=== PATIENT | female | born 1990 | race Caucasian/White ===

== ENCOUNTER 2016-11-16 09:21 | Emergency (ER) | payer OTHER ==
[~2016-11-16] VITALS: Ht 160 cm; Wt 43.7 kg
[~2016-11-16 09:21] MED LIST: ACET50TA PO; ANUS2.5C2 TOP; CIPR500T19 OR; DOCU10CA PO; IBUP60TA PO; NUPE1OIN2 TOP; PAIN325T; PRENTAB7 PO; VICO5TAB; ibuprofen; reglan OR; zithromax OR
[2016-11-16] MEDS ORDERED: FLAG500T PO (09:34)
[2016-11-16] MEDS ORDERED: BIOT50004 PO (09:34)
[2016-11-16] MEDS ORDERED: PRED20TA PO (10:11)
[2016-11-16] MEDS ORDERED: TRIA1CR TOP (10:12)
[2016-11-16] MEDS ORDERED: FAMOTIDINE 20 MG TAB PO ONE (10:15)
[2016-11-16] MEDS ORDERED: methylPREDNISolone INJ 125 MG/2 ML VIAL (J2930) IM ONE (10:15)
[2016-11-16 10:54] VITALS: BP 103/67
== END 2016-11-16 10:56 | disposition home or self-care (01) ==
LOC: M ED 09:21
DX: T78.40XA Allergy, unspecified, initial encounter (principal); L29.9 Pruritus, unspecified; X58.XXXA Exposure to other specified factors, initial encounter; Y92.9 Unspecified place or not applicable; Y93.9 Activity, unspecified; Y99.8 Other external cause status; L65.9 Nonscarring hair loss, unspecified; F41.9 Anxiety disorder, unspecified; F32.9 Major depressive disorder, single episode, unspecified; Z79.899 Other long term (current) drug therapy; Z88.0 Allergy status to penicillin
CPT/HCPCS: 96372; 99282; J2930

== ENCOUNTER → 2016-12-28 | Outpatient (REF) | payer OTHER ==
[~2016-12-28] MED LIST changes: +BIOT50004 PO; +FLAG500T PO; +PRED20TA PO; +TRIA1CR TOP
== END ==
LOC: M LAB REF 15:37
PROVIDERS: ATTEND Physician Assistant
DX: N39.0 Urinary tract infection, site not specified (principal)

== ENCOUNTER → 2017-06-02 | Outpatient (REF) | payer OTHER | LOC: M LAB REF 09:43 | DX: J06.9 Acute upper respiratory infection, unspecified (principal) | CPT/HCPCS: 87070 ==

== ENCOUNTER 2017-06-13 11:03 | Emergency (ER) | payer MEDICAID, OTHER ==
[2017-06-13] MEDS: KETOROLAC 30 MG/ML VIAL (J1885) IM (13:30)
[2017-06-13] MEDS: diazePAM 5 MG TAB PO (13:30)
[2017-06-13] MEDS: KETOROLAC TROMETHAMINE 10 MG TAB PO (14:30)
== END 2017-06-13 15:30 | disposition home or self-care (01) ==
LOC: M ED 11:03
DX: M47.812 Spondylosis without myelopathy or radiculopathy, cervical region (principal); M50.321 Other cervical disc degeneration at C4-C5 level; M50.322 Other cervical disc degeneration at C5-C6 level; M50.323 Other cervical disc degeneration at C6-C7 level; F32.9 Major depressive disorder, single episode, unspecified; Z88.0 Allergy status to penicillin; Z79.899 Other long term (current) drug therapy
CPT/HCPCS: 72141

== ENCOUNTER 2018-03-27 16:32 | Emergency (ER) | payer MEDICAID, OTHER ==
[~2018-03-27] VITALS: Ht 160 cm; Wt 43.2 kg
[~2018-03-27 16:32] MED LIST changes: -ACET50TA PO; +KETO10TAB PO; +MAPA500T17 PO; +MULT1TAB18 PO; +VALI5TAB PO; +VITA500C10 PO
[2018-03-27] MEDS ORDERED: FLAG500T PO (18:56)
[2018-03-27 18:58] LABS: HCG, SERUM QUALITATIVE NEGATIVE (NEGATIVE)
[2018-03-27 19:12] VITALS: BP 102/56
[2018-03-27 19:54] LABS: CHLAMYDIA DNA AMPLIFICATION NEGATIVE (NEGATIVE); GC DNA AMPLIFICATION NEGATIVE (NEGATIVE)
[2018-03-28 10:41] LABS: HEPATITIS B SURFACE ANTIBODY POSITIVE (POSITIVE); HEPATITIS B SURFACE ANTIGEN NEGATIVE (NEGATIVE); HEPATITIS C VIRUS ABY INDEX 0.1 INDEX (<0.8); HIV 1&2 SCREEN CENTAUR NEGATIVE (NEGATIVE)
== END 2018-03-27 19:14 | disposition home or self-care (01) ==
LOC: M ED 16:32
DX: N76.0 Acute vaginitis (principal); Z88.0 Allergy status to penicillin

== ENCOUNTER 2018-04-02 19:43 | Emergency (ER) | payer OTHER ==
[~2018-04-02] VITALS: Ht 160 cm; Wt 43.2 kg
[~2018-04-02 19:43] MED LIST changes: -MAPA500T17 PO; +MAPA500T2 PO
[2018-04-02 19:44] VITALS: BP 118/61
[2018-04-02] MEDS ORDERED: PROC1CRE5 PR (20:42)
[2018-04-02] MEDS ORDERED: LIDO2JELLY TOP (20:42)
[2018-04-02] MEDS ORDERED: COLA100C5 PO (20:44)
[2018-04-02] MEDS ORDERED: ANUSOL HC CREAM 30GM TOP ONE (21:00)
[2018-04-02] MEDS ORDERED: LIDOCAINE 2% JELLY 30 ML TOP ONE (21:00)
== END 2018-04-02 21:05 | disposition home or self-care (01) ==
LOC: M ED 19:43
DX: K64.4 Residual hemorrhoidal skin tags (principal); F41.9 Anxiety disorder, unspecified; F32.9 Major depressive disorder, single episode, unspecified; Z88.0 Allergy status to penicillin

== ENCOUNTER 2020-05-18 08:17 | Emergency (ER) | payer OTHER ==
[~2020-05-18] VITALS: Ht 160 cm; Wt 42.9 kg
[~2020-05-18 08:17] MED LIST changes: +COLA100C5 PO; +IBUP600T42 PO; -IBUP60TA PO; +LIDO2JELLY TOP; +PROC1CRE5 PR; +TRIA0.1C60 TOP; -TRIA1CR TOP
[2020-05-18 08:18] VITALS: BP 110/70
--- OUTSIDE RECORDS SUMMARY | 2020-05-18 08:23 | CCD | Continuity of Care Document ---
Author Author Юлия Saenz Organization Unknown Address [address] [facility] [address] [place] [address] Phone [phone] Care Team Providers Care Hyster Machine Operator Name Role Phone Reta Rock AUTM [phone] Problems Active Problems Provider Date Abdominal pain Mary Lawrence DO Onset: 09/14/2011 Weight decreased Mary Lawrence DO Onset: 09/14/2011 Lymphadenopathy Mary Lawrence DO Onset: 09/14/2011 Social History Type Date Description Comments Sex Unknown ETOH Use Rarely consumes alcohol Tobacco Use Start: Unknown End: Unknown Patient is a former smoker 2017 - but is vaping. She continues to use e-cigarettes. Discussed the information lately in the news that vaping could be harmful to her lungs. Tattoo/Piercing Tattoo Tattoo/Piercing Pierced ears Allergies, Adverse Reactions, Alerts Active Allergies Reaction Severity Comments Date Amoxicillin rash 07/25/2010 Medications Active Medications SIG Qnty Indications Ordering Provide r Date Preparation H 1% Cream apply cream to hemorrhoid twice daily. 52gm DOMENIC Saenz 021 Lanacane Maximum Strength 20-0.2% Cream apply to hemorrhoid bid DOMENIC Saenz 021 Multivitamin Adult Tablets 1 by mouth every day DOMENIC Saenz 10/29/2018 Immunizations CPT Code Status Date Vaccine Lot # [id number] Given 01/07/2012 Fluvirin Virus Vaccine [id number] Vital Signs Date Vital Result Comment 04/22/2020 3:49pm Heart Rate 60 /min Height 63 inches 5'3" Weight 99.00 lb O2 % BldC Oximetry 93 % RM Air BMI (Body Mass Index) 17.5 kg/m2 01/27/2020 3:09pm BP Systolic 92 mmHg BP Diastolic 62 mmHg Heart Rate 61 /min Height 63 inches 5'3" Weight 91.00 lb O2 % BldC Oximetry 99 % RM Air BMI (Body Mass Index) 16.1 kg/m2 Results Test Acquired Date Facility Test Result H/L Range Note Complete Blood Count 01/27/2020 [facility] rimma sanchez Manager Private: [address] [place] [address] [phone] WBC 4.5 x10*3/UL 4.1 - 10.9 RBC 4.62 x10*6/UL 4.20 - 6.30 Hemoglobin 14.0 g/dL 12.0 - 18.0 Hematocrit 39.9 % 37.0 - 51.0 MCV 86.2 fL 80.0 - 97.0 MCH 30.4 pg 26.0 - 32.0 MCHC 35.2 g/dL 31.0 - 38.0 RDW 12.5 % 11.6 - 13.7 PLT 246 x10*3/UL 140 - 440 MPV 8.3 FL 7.8 - 11.0 Lymph % 32.2 % 10.0 - 58.5 Mid % 6.2 % 1.7 - 9.3 Neut % 61.6 % 37.0 - 92.0 Lymph # 1.4 x10*3/UL 0.6 - 4.1 Mid # 0.3 x10*3/UL 0.1 - 0.6 Neut # 2.8 x10*3/UL 2.0 - 7.8 Comprehensive Chem Profile 01/27/2020 [facility] rimma Kyle Manager Private: Dr Cisco [address] [place] [address] [phone] Glucose 102 mg/dL High 74 - 99 1 BUN 20 mg/dL High 7 - 18 Creatinine 1.0 mg/dL 0.6 - 1.3 Sodium 142 mEq/L 136 - 145 Potassium 3.5 mEq/L 3.5 - 5.1 Chloride 103 mEq/L 98 - 107 Carbon Dioxide 28 mEq/L 21 - 32 Calcium 9.1 mg/dL 8.5 - 10.1 Alk. Phosphatase 53 mg/dL 46 - 116 Total Bilirubin 0.7 mg/dL 0.2 - 1.0 Ast (Sgot) 12 U/L Low 15 - 37 Alt (SGPT) 14 U/L 12 - 78 Albumin 4.2 g/dL 3.4 - 5.0 Total Protein 7.6 g/dL 6.4 - 8.2 A/G Ratio 1.24 CALC 1.00 - 1.90 GFR >= 60 mL/min >60 GFR >= 60 mL/min >60 2 A1c 01/27/2020 [facility] Manager Private: [address] [place] [address] [phone] Hba1c 5.2 % <5.7 3 Est Avg Glucose 103 mg/dL 60 - 110 Laboratory test finding 01/27/2020 [facility] [employer] rimma mayer Manager Private: Dr [address] [place], [place] [id number] [phone] Thyroid Stimulating Hormone 2.25 uIU/mL 0.3 6 - 3.74 1 100-125 mg/dL PRE-DIABET ES/FASTING >126 mg/dL DIABETES/FASTING 2 CHRONIC KIDNEY DISEASE STAGI NG PER NKF STAGE I & II GFR >= 60 NORMAL TO MILDLY DECREASED STAGE III GFR 30-59 MODERATELY DECREASED STAGE IV GFR 15-29 SEVERELY DECREASED STAGE V GFR <15 VERY LITTLE GFR LEFT ESRD GFR <15 ON EXPERIENCE DESIGNER 3 Lab Result Notes: Pre-Diabetes 5.7 - 6.4 % Diabetes = or > 6.5% Procedures Date Code Description Status 12/09/2015 [id number] Colonoscopy Completed Medical Devices Description No Information Available Encounters Type Date Location Provider Dx Diagnosis Office Visit 01/27/2020 3:00p [facility] [place]eta [place], [facility] Z00.01 Encounter for general adult medical exam w abnormal findings R63.6 Underweight Z68.1 Body mass index [BMI] 19.9 o r less, adult R73.09 Other abnormal glucose F41.9 Anxiety disorder, unspecifie d R10.32 Left lower quadrant pain Assessments Date Code Description Provider 01/27/2020 Z00.01 Encounter for genera l adult medical examination with abnormal findings DOMENIC Saenz 01/27/2020 R63.6 Underweight DOMENIC Saenz 01/27/2020 Z68.1 Body mass index [BMI] 19.9 or le ss, adult DOMENIC Saenz 01/27/2020 R73.09 Other abnormal glucose Reta Dodge, TELEPRINTER 01/27/2020 F41.9 Anxiety disorder, unspecified An n Yesenia Alexander, DOMENIC 01/27/2020 R10.32 Left lower quadrant pain DOMENIC Saenz Plan of Treatment Future Appointment(s):* 02/01/2021 3:00 pm - DOMENIC Saenz at [facility] * 07/26/2020 3:20 pm - DOMENIC Saenz at [facility] 04/22/2020 - DOMENCI Saenz* All * New Medication:* Preparation H 1 % - apply cream to hemorrhoid twice daily. * Lanacane Maximum Strength 20-0.2 % - apply to hemorrhoid bid Functional Status Description No Information Available Mental Status Description No Information Available Referrals Refer to Dr Reason for Referral Status Appt Date [facility] ENGINEER CONSULT FOR BLURRED VISION RT EYE Sent [facility] [address] [place] [address] [phone]
--- OUTSIDE RECORDS SUMMARY | 2020-05-18 08:23 | CCD | Continuity of Care Document ---
Author Author Юлия PECK MD Organization Unknown Address [address] [facility] [address] [place] [address] Phone [phone] Care Team Providers Care Beef Cattle Specialist Name Role Phone Reta RockM [phone] Problems Description No Active Problems Social History Type Date Description Comments Sex Unknown ETOH Use Rarely consumes alcohol Recreational Drug Use Denies Drug Use Tobacco Use Start: Unknown Denies Smoking Allergies, Adverse Reactions, Alerts Active Allergies Reaction Severity Comments Date Amoxicillin 09/07/2015 Medications Active Medications SIG Qnty Indications Ordering Provide r Date Multivitamin Adult Tablets 1 by mouth every day Unknown Immunizations Description No Information Available Vital Signs Date Vital Result Comment 05/04/2020 4:05pm BP Systolic 104 mmHg BP Diastolic 69 mmHg Heart Rate 61 /min Height 63 inches 5'3" Weight 94.50 lb BMI (Body Mass Index) 16.7 kg/m2 [place] Body Weight 115 lb Weight 42.865 kg BSA (Body Surface Area) 1.41 m2 04/04/2018 10:10am BP Systolic 104 mmHg Ra BP Diastolic 70 mmHg Ra Height 63 inches 5'3" Weight 98.00 lb BMI (Body Mass Index) 17.4 kg/m2 [place] Body Weight 115 lb Weight 44.453 kg BSA (Body Surface Area) 1.43 m2 Results Description No Information Available Procedures Description No Information Available Medical Devices Description No Information Available Encounters Description No Information Available Assessments Description No Information Available Plan of Treatment 04/04/2018 - Tamir Peck JR, MD* K64.5 Perianal venous thrombosis* Comments: * Patient has an obvious thrombosed external hemorrhoid which is symptomatic at this time and causes pain and discomfort. We have discussed options for her including nonoperative versus operative treatment with incision and drainage of this and the risks as well as benefits associated with nonoperative versus operative treatment and the patient would like to proceed with incision and drainage of thrombosed external hemorrhoid.Preoperative diagnosis-thrombosed external hemorrhoidPostoperative diagnosis-sameProcedure- incision and drainage of thrombosed external hemorrhoidProcedure summaryPatient was prepped and draped in usual sterile fashion Betadine was used to clean the area and then local lidocaine with epinephrine was infiltrated around the thrombosed external hemorrhoid after adequate local anesthesia was established and the patient was comfortable additional injections within the hemorrhoid itself was performed and then a cruciate type of incision was made over the top of the thrombosed external hemorrhoid the clot was evacuated with a curved hemostat as well as some gentle pressure. After adequate evacuation the area was covered with a dry sterile gauze after good hemostasis was achieved with some minimal local pressure.Postoperative care was discussed with the patient at length including sitz baths and the expectation that this will continue to drain for a few days however if this has ongoing bleeding or drainage or pain that is persistent to contact our office and we will reevaluate her at that time. Pain control with typical analgesics is warranted such as Tylenol or nonsteroidals. Functional Status Description No Information Available Mental Status Description No Information Available Referrals Refer to Reason for Referral Status Appt Date Tamir Peck JR, MD HEMORRHOIDS Scheduled [address] [place] [address] [phone]
--- OUTSIDE RECORDS SUMMARY | 2020-05-18 08:24 | CCD ---
Author Author [facility] Organization [facility] Address Unknown Phone Unavailable Care Team Providers Care Machine Edge Bander Name Role Phone LePine, M Reta GEOSPATIAL PROGRAM MANAGEMENT OFFICER Unavailable Unavailable LePine, M Reta GEOSPATIAL PROGRAM MANAGEMENT OFFICER Unavailable Unavailable LePine, M Reta GEOSPATIAL PROGRAM MANAGEMENT OFFICER Unavailable Unavailable LePine, M Reat GEOSPATIAL PROGRAM MANAGEMENT OFFICER Unavailable Unavailable LePine, M Reta GEOSPATIAL PROGRAM MANAGEMENT OFFICER Unavailable Unavailable LePine, M Reta GEOSPATIAL PROGRAM MANAGEMENT OFFICER Unavailable Unavailable LePine, M Reta GEOSPATIAL PROGRAM MANAGEMENT OFFICER Unavailable Unavailable LePine, M Reta GEOSPATIAL PROGRAM MANAGEMENT OFFICER Unavailable Unavailable LePine, M Reta GEOSPATIAL PROGRAM MANAGEMENT OFFICER Unavailable Unavailable LePine, M Reta GEOSPATIAL PROGRAM MANAGEMENT OFFICER Unavailable Unavailable LePine, M Reta GEOSPATIAL PROGRAM MANAGEMENT OFFICER Unavailable Unavailable LePine, M Reta GEOSPATIAL PROGRAM MANAGEMENT OFFICER Unavailable Unavailable LePine, M Reta GEOSPATIAL PROGRAM MANAGEMENT OFFICER Unavailable Unavailable LePine, M Reta GEOSPATIAL PROGRAM MANAGEMENT OFFICER Unavailable Unavailable LePine, M Reta GEOSPATIAL PROGRAM MANAGEMENT OFFICER Unavailable Unavailable LePine, M Reta GEOSPATIAL PROGRAM MANAGEMENT OFFICER Unavailable Unavailable LePine, M Reta GEOSPATIAL PROGRAM MANAGEMENT OFFICER Unavailable Unavailable LePine, M Reta GEOSPATIAL PROGRAM MANAGEMENT OFFICER Unavailable Unavailable LePine, M Reta GEOSPATIAL PROGRAM MANAGEMENT OFFICER Unavailable Unavailable LePine, M Reta GEOSPATIAL PROGRAM MANAGEMENT OFFICER Unavailable Unavailable LePine, M Reta GEOSPATIAL PROGRAM MANAGEMENT OFFICER Unavailable Unavailable LePine, M Reta GEOSPATIAL PROGRAM MANAGEMENT OFFICER Unavailable Unavailable LePine, M Reta GEOSPATIAL PROGRAM MANAGEMENT OFFICER Unavailable Unavailable LePine, M Reta GEOSPATIAL PROGRAM MANAGEMENT OFFICER Unavailable Unavailable LePine, M Reta GEOSPATIAL PROGRAM MANAGEMENT OFFICER Unavailable Unavailable LePine, M Reta GEOSPATIAL PROGRAM MANAGEMENT OFFICER Unavailable Unavailable LePine, M Reta GEOSPATIAL PROGRAM MANAGEMENT OFFICER Unavailable Unavailable LePine, M Reta GEOSPATIAL PROGRAM MANAGEMENT OFFICER Unavailable Unavailable LePine, M Reta GEOSPATIAL PROGRAM MANAGEMENT OFFICER Unavailable Unavailable LePine, M Reta GEOSPATIAL PROGRAM MANAGEMENT OFFICER Unavailable Unavailable LePine, M Reta GEOSPATIAL PROGRAM MANAGEMENT OFFICER Unavailable Unavailable LePine, M Reta GEOSPATIAL PROGRAM MANAGEMENT OFFICER Unavailable Unavailable LePine, M Reta GEOSPATIAL PROGRAM MANAGEMENT OFFICER Unavailable Unavailable LePine, M Reta GEOSPATIAL PROGRAM MANAGEMENT OFFICER Unavailable Unavailable LePine, M Reta GEOSPATIAL PROGRAM MANAGEMENT OFFICER Unavailable Unavailable LePine, M Reta GEOSPATIAL PROGRAM MANAGEMENT OFFICER Unavailable Unavailable LePine, M Reta GEOSPATIAL PROGRAM MANAGEMENT OFFICER Unavailable Unavailable LePine, M Reta GEOSPATIAL PROGRAM MANAGEMENT OFFICER Unavailable Unavailable LePine, M Reta GEOSPATIAL PROGRAM MANAGEMENT OFFICER Unavailable Unavailable LePine, M Reta GEOSPATIAL PROGRAM MANAGEMENT OFFICER Unavailable Unavailable LePine, M Reta GEOSPATIAL PROGRAM MANAGEMENT OFFICER Unavailable Unavailable LePine, M Reta GEOSPATIAL PROGRAM MANAGEMENT OFFICER Unavailable Unavailable LePine, M Reta GEOSPATIAL PROGRAM MANAGEMENT OFFICER Unavailable Unavailable LePine, M Reta GEOSPATIAL PROGRAM MANAGEMENT OFFICER Unavailable Unavailable LePine, M Reta GEOSPATIAL PROGRAM MANAGEMENT OFFICER Unavailable Unavailable LePine, M Reta GEOSPATIAL PROGRAM MANAGEMENT OFFICER Unavailable Unavailable LePine, M Reta GEOSPATIAL PROGRAM MANAGEMENT OFFICER Unavailable Unavailable LePine, M Reta GEOSPATIAL PROGRAM MANAGEMENT OFFICER Unavailable Unavailable LePine, M Reta GEOSPATIAL PROGRAM MANAGEMENT OFFICER Unavailable Unavailable LePine, M Reta GEOSPATIAL PROGRAM MANAGEMENT OFFICER Unavailable Unavailable LePine, M Reta GEOSPATIAL PROGRAM MANAGEMENT OFFICER Unavailable Unavailable LePine, M Reta GEOSPATIAL PROGRAM MANAGEMENT OFFICER Unavailable Unavailable LePine, M Reta GEOSPATIAL PROGRAM MANAGEMENT OFFICER Unavailable Unavailable LePine, M Reta GEOSPATIAL PROGRAM MANAGEMENT OFFICER Unavailable Unavailable LePine, M Reta GEOSPATIAL PROGRAM MANAGEMENT OFFICER Unavailable Unavailable LePine, M Reta GEOSPATIAL PROGRAM MANAGEMENT OFFICER Unavailable Unavailable Re-disclosure Warning The records that you are about to access may contain information from federally-assisted alcohol or drug abuse programs. If such information is present, then the following federally mandated warning applies: This information has been disclosed to you from records protected by federal confidentiality rules (42 CFR part 2). The federal rules prohibit you from making any further disclosure of this information unless further disclosure is expressly permitted by the written consent of the person to whom it pertains or as otherwise permitted by 42 CFR part 2. A general authorization for the release of medical or other information is NOT sufficient for this purpose. The Federal rules restrict any use of the information to criminally investigate or prosecute any alcohol or drug abuse patient.The records that you are about to access may contain highly sensitive health information, the redisclosure of which is protected by Article 27-F of the [facility] Public Health law. If you continue you may have access to information: Regarding HIV / AIDS; Provided by facilities licensed or operated by the [facility] Office of Mental Health; or Provided by the [facility] Office for People With Developmental Disabilities. If such information is present, then the following [facility] mandated warning applies: This information has been disclosed to you from confidential records which are protected by state law. State law prohibits you from making any further disclosure of this information without the specific written consent of the person to whom it pertains, or as otherwise permitted by law. Any unauthorized further disclosure in violation of state law may result in a fine or mcfp sentence or both. A general authorization for the release of medical or other information is NOT sufficient authorization for further disc losure. Family History Family Member Name Family Member Gender Family Member Status Date o f Status Description Data Source(s) Unknown Unknown Problem [facility] Unknown Unknown Problem [facility] ([facility]) Unknown Unknown Problem [facility] ([facility]) mother, mgf Unknown Male Problem [facility] ([facility]) Encounters Encounter Providers Location Date Indications Data Source(s ) Outpatient Attender: Reta Reyes 01/26 03:00:00 PM EDT [facility] ([facility] ) Medications Medication Brand Name Start Date Product Form Dose Route Admi nistrative Instructions Pharmacy Instructions Status Indications Reaction Description Data Source(s) Hydrocortisone 10 MG/ML Rectal Cream [Preparation H Hy drocortisone] Preparation H 04/22/2020 12:00:00 AM EST active [facility] ([facility]) Benzethonium Chloride 2 MG/ML / Benzocaine 200 MG/ML T opical Cream [Lanacane] Lanacane Maximum Strength 04/22/2020 12:00:00 AM EST active [facility] ([facility]) 500 mg 04/06/2019 12:00:00 AM EST tablet 21 TAKE ONE TABLET BY MOUTH THREE TIMES A DAY FOR 7 DAYS TAKE ONE TABLET BY MOUTH THREE TIMES A DAY FOR 7 DAYS SOLD: 04/06/2019 [facility] Insurance Providers Payer name Policy type / Coverage type Policy ID Covered constitution party ID Covered constitution party's relationship to coleman Policy Coleman Plan Information [facility] COMMUNITY [facility] [id number] SP [id number] [facility] COMMUNITY PLAN MCDO [id number] SP [id number] MEDICAID [id number] SP [id number] MEDICAID M [id number] S [id number] UN COMMUNITY PLAN MCDO [id number] SP [id number] [facility] [place] Organization (HMO) [id number] Self [id number] Medicaid Medigap Part B [id number] Self [id number] [facility] Health Maintenance Organization (HMO) [id number] Self [id number] [facility] Steve/Ess PLS Commercial [id number] Self [id number] Medicaid Medigap Part B 1 1 Self 1 1 [employer] Health Maintenance Organization (HMO) [id number] [facility] Steve/Ess PLS Commercial [id number] Self [id number] [facility] Steve/MCR Medigap Part B Self Medicaid [place] Self UHC I [id number] Self [id number] United CR/Community [place] Health Maintenance Organization (HMO) Self UHC I [id number] Self [id number] UNITED HEALTHCARE(MCAID) P [id number] S [id number] UNITED HEALTHCARE(MCAID) P [id number] S [id number] [id number] COMMUNITY PLAN MCDHMO [id number] SP [id number] HMO BLUE [id number] SP [id number] MEDICAID [id number] SP [id number] Results ID Date Data Source [id number] 01/27/2020 03:02:00 PM EDT [facility]) Name Value Range Interpretation Code Description Data Radha rce(s) Supporting Document(s) Thyrotropin [Units/volume] in Serum or Plasma by Detec tion limit <= 0.05 mIU/L 2.25 uIU/mL 0.36-3.74 [facility] ([facility] ) ID Date Data Source [id number] 01/27/2020 03:02:00 PM EDT [facility] ([facility]) Name Value Range Interpretation Code Description Data Radha rce(s) Supporting Document(s) Hemoglobin A1c/Hemoglobin.total in Blood 5.2 % [facility] ([facility]) Lab Result Notes: Pre-Diabetes 5.7 - 6.4 % Diabetes = or > 6.5% Glucose mean value [Mass/volume] in Blood Estimated fr om glycated hemoglobin 103 mg/dL 60-110 [facility] ([facility] ) ID Date Data Source [id number] 01/27/2020 03:02:00 PM EDT [facility] ([facility]) Name Value Range Interpretation Code Description Data Radha rce(s) Supporting Document(s) Creatinine 1.0 mg/dL 0.6-1.3 [facility] Urea nitrogen [Mass/volume] in Serum or Plasma 20 mg/dL 7-18 [facility] ([facility]) Glucose [Mass/volume] in Serum or Plasma 102 mg/dL 74-99 [facility] ([facility]) 100-125 mg/dL PRE-DIABETES/FASTING >126 mg/dL DIABETES/FASTING Potassium [Moles/volume] in Serum or Plasma 3.5 meq/L 3.5-5.1 [facility] ([facility]) Sodium [Moles/volume] in Serum or Plasma 142 meq/L 136-145 [facility] ([facility]) Chloride [Moles/volume] in Serum or Plasma 103 meq/L 98-107 [facility] ([facility]) Carbon dioxide, total [Moles/volume] in Serum or Plasma 28 meq/L 21 -32 [facility] ([facility]) Alkaline phosphatase isoenzyme [Units/volume] in Serum or Pl asma 53 mg/dL 46-116 [facility] ([facility]) Calcium [Mass/volume] in Serum or Plasma 9.1 mg/dL 8.5-10.1 [facility] ([facility]) Total Bilirubin 0.7 mg/dL 0.2-1.0 [facility] ([facility]) Aspartate aminotransferase [Enzymatic activity/volume] in Serum or Plasma 12 U/L 15-37 [facility] ([facility] ) Alanine aminotransferase [Enzymatic activity/volume] in Seru m or Plasma 14 U/L 12-78 [facility] ([facility]) Albumin [Mass/volume] in Serum or Plasma 4.2 g/dL 3.4-5.0 [facility] ([facility]) Proteinase 3 Ab [Units/volume] in Serum 7.6 g/dL 6.4-8.2 [facility] ([facility]) A/G Ratio 1.24 CALC 1.00-1.90 [facility]) Glomerular filtration rate/1.73 sq M pre dicted among non-blacks [Volume Rate/Area] in Serum or Plasma by Creatinine-based formula (MDRD) Laboratory test result [facility] Glomerular filtration rate/1.73 sq M pre dicted among blacks [Volume Rate/Area] in Serum or Plasma by Creatinine-based formula (MDRD) Laboratory test result [facility] ([facility]) <content>CHRONIC KIDNEY DISEASE STAGING PER NKF</content>
<content></content>
<content>STAGE I & II GFR >= 60 NORMAL TO MILDLY DECREASED</content>
<content>STAGE III GFR 30-59 MODERATELY DECREASED</content>
<content>STAGE IV GFR 15-29 SEVERELY DECREASED</content>
<content>STAGE V GFR <15 VERY LITTLE GFR LEFT</content>
<content>ESRD GFR <15 ON PAPER BAG PRESS OPERATOR</content>
<content></content> ID Date Data Source [id number] 01/27/2020 03:02:00 PM EDT [facility] ([facility]) Name Value Range Interpretation Code Description Data Radha rce(s) Supporting Document(s) Leukocytes [#/volume] in Blood by Automated count 4.5 x10*3/UL 4.1-10 .9 [facility] ([facility]) Erythrocytes [#/volume] in Blood by Automated count 4.62 x10*6/UL 4.2 0-6.30 [facility] ([facility]) Hemoglobin [Mass/volume] in Blood 14.0 g/dL 12.0-18.0 [facility] Hematocrit [Volume Fraction] of Blood by Automated count 39.9 % 3 7.0-51.0 [facility] ([facility]) MCHC 35.2 g/dL 31.0-38.0 [facility]) MCH 30.4 pg 26.0-32.0 [facility] MCV 86.2 fL 80.0-97.0 [facility] MPV 8.3 FL 7.8-11.0 [facility] Erythrocyte distribution width [Ratio] by Automated count 12.5 % 11.6-13.7 [facility] Platelets [#/volume] in Blood by Automated count 246 x10*3/UL 140-440 [facility] ([facility]) Neut % 61.6 % 37.0-92.0 [facility] Lymph % 32.2 % 10.0-58.5 [facility] Mid % 6.2 % 1.7-9.3 [facility] Neut # 2.8 x10*3/UL 2.0-7.8 [facility] ([facility]) Mid # 0.3 x10*3/UL 0.1-0.6 [facility] ([facility]) Lymph # 1.4 x10*3/UL 0.6-4.1 [facility] ([facility]) ID Date Data Source [id number] 01/27/2020 03:02:00 PM EDT [facility]) Name Value Range Interpretation Code Description Data Radha rce(s) Supporting Document(s) Hemoglobin A1c/Hemoglobin.total in Blood Laboratory test result [facility] ([facility]) Thyrotropin [Units/volume] in Serum or Plasma by Detec tion limit <= 0.05 mIU/L Laboratory test result [facility] ([facility]) Procedure Vital Signs ID Date Data Source UNK Name Value Range Interpretation Code Description Data Source(s) Body mass index (BMI) [Ratio] 17.5 kg/m2 17.5 k g/m2 [facility] ([facility]) Oxygen saturation in Arterial blood by Pulse oximetry 93 % 93 % [facility] ([facility]) RM Air Body weight 99.00 [lb_av] 99.00 [lb_av] [facility] ([facility]) Body height 63 [in_i] 63 [in_i] [facility] ([facility]) 5'3" Heart rate 60 /min 60 /min [facility] ([facility]) Body mass index (BMI) [Ratio] 16.1 kg/m2 16.1 k g/m2 [facility] ([facility]) Oxygen saturation in Arterial blood by Pulse oximetry 99 % 99 % [facility] ([facility]) RM Air Body weight 91.00 [lb_av] 91.00 [lb_av] [facility] ([facility]) Body height 63 [in_i] 63 [in_i] [facility] ([facility]) 5'3" Heart rate 61 /min 61 /min [facility] ([facility]) Diastolic blood pressure 62 mm[Hg] 62 mm[Hg] [facility] ([facility]) Systolic blood pressure 92 mm[Hg] 92 mm[Hg] M [facility] ([facility])
[2020-05-18] MEDS ORDERED: IBUP200C33 PO (08:25)
[2020-05-18] MEDS ORDERED: CYCL-707 PO (08:53)
[2020-05-18] MEDS ORDERED: NAPR-837 PO (08:53)
[2020-05-18] MEDS ORDERED: NAPROXEN 250 MG TAB PO ONE (09:00)
--- OUTSIDE RECORDS SUMMARY | 2020-05-18 09:04 | CCD ---
Author Author [facility] Organization [facility] Address Unknown Phone Unavailable Care Team Providers Care Betting Clerk Name Role Phone LePine, M Reta CONTACT LENS INSPECTOR Unavailable Unavailable LePine, M Reta CONTACT LENS INSPECTOR Unavailable Unavailable LePine, M Reta CONTACT LENS INSPECTOR Unavailable Unavailable LePine, M Reta CONTACT LENS INSPECTOR Unavailable Unavailable LePine, M Reta CONTACT LENS INSPECTOR Unavailable Unavailable LePine, M Reta CONTACT LENS INSPECTOR Unavailable Unavailable LePine, M Reta CONTACT LENS INSPECTOR Unavailable Unavailable LePine, M Reta CONTACT LENS INSPECTOR Unavailable Unavailable LePine, M Reta CONTACT LENS INSPECTOR Unavailable Unavailable LePine, M Reta CONTACT LENS INSPECTOR Unavailable Unavailable LePine, M Reta CONTACT LENS INSPECTOR Unavailable Unavailable LePine, M Reta CONTACT LENS INSPECTOR Unavailable Unavailable LePine, M Reta CONTACT LENS INSPECTOR Unavailable Unavailable LePine, M Reta CONTACT LENS INSPECTOR Unavailable Unavailable LePine, M Reta CONTACT LENS INSPECTOR Unavailable Unavailable LePine, M Reta CONTACT LENS INSPECTOR Unavailable Unavailable LePine, M Reta CONTACT LENS INSPECTOR Unavailable Unavailable LePine, M Reta CONTACT LENS INSPECTOR Unavailable Unavailable LePine, M Reta CONTACT LENS INSPECTOR Unavailable Unavailable LePine, M Reta CONTACT LENS INSPECTOR Unavailable Unavailable LePine, M Reta CONTACT LENS INSPECTOR Unavailable Unavailable LePine, M Reta CONTACT LENS INSPECTOR Unavailable Unavailable LePine, M Reta CONTACT LENS INSPECTOR Unavailable Unavailable LePine, M Reta CONTACT LENS INSPECTOR Unavailable Unavailable LePine, M Reta CONTACT LENS INSPECTOR Unavailable Unavailable LePine, M Reta CONTACT LENS INSPECTOR Unavailable Unavailable LePine, M Reta CONTACT LENS INSPECTOR Unavailable Unavailable LePine, M Reta CONTACT LENS INSPECTOR Unavailable Unavailable LePine, M Reta CONTACT LENS INSPECTOR Unavailable Unavailable LePine, M Reta CONTACT LENS INSPECTOR Unavailable Unavailable LePine, M Reta CONTACT LENS INSPECTOR Unavailable Unavailable LePine, M Reta CONTACT LENS INSPECTOR Unavailable Unavailable LePine, M Reta CONTACT LENS INSPECTOR Unavailable Unavailable LePine, M Reta CONTACT LENS INSPECTOR Unavailable Unavailable LePine, M Rtea CONTACT LENS INSPECTOR Unavailable Unavailable LePine, M Reta CONTACT LENS INSPECTOR Unavailable Unavailable LePine, M Reta CONTACT LENS INSPECTOR Unavailable Unavailable LePine, M Reta CONTACT LENS INSPECTOR Unavailable Unavailable LePine, M Reta CONTACT LENS INSPECTOR Unavailable Unavailable LePine, M Reta CONTACT LENS INSPECTOR Unavailable Unavailable LePine, M Reta CONTACT LENS INSPECTOR Unavailable Unavailable LePine, M Reta CONTACT LENS INSPECTOR Unavailable Unavailable LePine, M Reta CONTACT LENS INSPECTOR Unavailable Unavailable LePine, M Reta CONTACT LENS INSPECTOR Unavailable Unavailable LePine, M Reta CONTACT LENS INSPECTOR Unavailable Unavailable LePine, M Reta CONTACT LENS INSPECTOR Unavailable Unavailable LePine, M Reta CONTACT LENS INSPECTOR Unavailable Unavailable LePine, M Reta CONTACT LENS INSPECTOR Unavailable Unavailable LePine, M Reta CONTACT LENS INSPECTOR Unavailable Unavailable LePine, M Reta CONTACT LENS INSPECTOR Unavailable Unavailable LePine, M Reta CONTACT LENS INSPECTOR Unavailable Unavailable LePine, M Reta CONTACT LENS INSPECTOR Unavailable Unavailable LePine, M Reta CONTACT LENS INSPECTOR Unavailable Unavailable LePine, M Reta CONTACT LENS INSPECTOR Unavailable Unavailable LePine, M Reta CONTACT LENS INSPECTOR Unavailable Unavailable LePine, M Reta CONTACT LENS INSPECTOR Unavailable Unavailable Re-disclosure Warning The records that [...] is protected by Article 27-F of the [place] Public [employer] law. If you continue you may have access to information: Regarding HIV / AIDS; Provided by facilities licensed or operated by the [place] Office of Mental Health; or Provided by the [place] Office for People With Developmental Disabilities. If such information is present, then the following [place] mandated warning applies: This information has been [...] law may result in a fine or fpc sentence or both. A general authorization for the release of medical or other information is NOT sufficient authorization for further disc losure. Family History Family Member Name Family Member Gender Family Member Status Date o f Status Description Data Source(s) Unknown Unknown Problem [facility] ) Unknown Unknown Problem [facility] ([facility]) Unknown Unknown Problem [facility] ([facility]) mother, mgf Unknown Male Problem [facility] ([facility]) Encounters Encounter Providers Location Date Indications Data Source(s ) Outpatient Attender: Reta Reyes 01/26 03:00:00 PM EDT [facility] ([facility] ) Medications Medication Brand Name Start Date Product Form Dose Route Admi nistrative Instructions Pharmacy Instructions Status Indications Reaction Description Data Source(s) Hydrocortisone 10 MG/ML Rectal Cream [Preparation H Hy drocortisone] Preparation H 04/22/2020 12:00:00 AM EST active [facility] ([facility]) Benzethonium Chloride 2 MG/ML / Benzocaine 200 MG/ML T opical Cream [Lanacane] Lanacane Maximum Strength 04/22/2020 12:00:00 AM EST active [facility] ([facility]) 500 mg 04/06/2019 12:00:00 AM EST tablet 21 TAKE ONE TABLET BY MOUTH THREE TIMES A DAY FOR 7 DAYS TAKE ONE TABLET BY MOUTH THREE TIMES A DAY FOR 7 DAYS SOLD: 04/06/2019 [facility] Insurance Providers Payer name Policy type / Coverage type Policy ID Covered constitution party ID Covered constitution party's relationship to coleman Policy Coleman Plan Information [facility] COMMUNITY PLAN MCDO [id number] SP [id number] [facility] COMMUNITY PLAN MCDO [id number] SP [id number] MEDICAID [id number] SP [id number] MEDICAID M [id number] S [id number] UN COMMUNITY PLAN MCDO [id number] SP [id number] [facility] Health Maintenance Organization (HMO) [id number] Self [id number] Medicaid Medigap Part B [id number] Self [id number] [facility] Health Maintenance Organization (HMO) [id number] Self [id number] [facility] Community Steve/Ess PLS Commercial [id number] Self [id number] Medicaid Medigap Part B 1 1 Self 1 1 [employer] Health Maintenance Organization (HMO) [id number] [facility] Community Steve/Ess PLS Commercial [id number] Self [id number] [facility] Steve/MCR Medigap Part B Self Medicaid [place] Medicaid Self UHC I [id number] Self [id number] United CR/Community [place] Health Maintenance Organization (HMO) Self UHC I [id number] Self [id number] UNITED HEALTHCARE(MCAID) P [id number] S [id number] UNITED HE[employer]CARE(MCAID) P [id number] S [id number] [employer] COMMUNITY PLAN MCDHMO [id number] SP [id number] HMO BLUE [id number] SP [id number] MEDICAID [id number] SP [id number] Results ID Date Data Source [id number] 01/27/2020 03:02:00 PM EDT [facility] ([facility]) Name Value Range Interpretation Code Description Data Radha rce(s) Supporting Document(s) Thyrotropin [Units/volume] in Serum or Plasma by Detec tion limit <= 0.05 mIU/L 2.25 uIU/mL 0.36-3.74 [facility] ) ID Date Data Source [id number] 01/27/2020 03:02:00 PM EDT [facility] ([facility]) Name Value Range Interpretation Code Description Data Radha rce(s) Supporting Document(s) Hemoglobin A1c/Hemoglobin.total in Blood 5.2 % [facility] ([facility]) Lab Result Notes: Pre-Diabetes 5.7 - 6.4 % Diabetes = or > 6.5% Glucose mean value [Mass/volume] in Blood Estimated fr om glycated hemoglobin 103 mg/dL 60-110 [facility] ([facility] ) ID Date Data Source [id number] 01/27/2020 03:02:00 PM EDT [facility] ([facility]) Name Value Range Interpretation Code Description Data Radha rce(s) Supporting Document(s) Creatinine 1.0 mg/dL 0.6-1.3 [facility] Urea nitrogen [Mass/volume] in Serum or Plasma 20 mg/dL 7-18 [facility] ([facility]) Glucose [Mass/volume] in Serum or Plasma 102 mg/dL 74-99 [facility] ([facility]) 100-125 mg/dL PRE-DIABETES/FASTING >126 mg/dL DIABETES/FASTING Potassium [Moles/volume] in Serum or Plasma 3.5 meq/L 3.5-5.1 [facility] ([facility]) Sodium [Moles/volume] in Serum or Plasma 142 meq/L 136-145 [facility] ([facility]) Chloride [Moles/volume] in Serum or Plasma 103 meq/L 98-107 [facility] ([facility]) Carbon dioxide, total [Moles/volume] in Serum or Plasma 28 meq/L 21 -32 [facility] ([facility]) Alkaline phosphatase isoenzyme [Units/volume] in Serum or Pl asma 53 mg/dL 46-116 [facility] ([facility]) Calcium [Mass/volume] in Serum or Plasma 9.1 mg/dL 8.5-10.1 [facility] ([facility]) Total Bilirubin 0.7 mg/dL 0.2-1.0 [facility] ([facility]) Aspartate aminotransferase [Enzymatic activity/volume] in Serum or Plasma 12 U/L 15-37 [facility] ([facility] ) Alanine aminotransferase [Enzymatic activity/volume] in Seru m or Plasma 14 U/L 12-78 [facility] ([facility]) Albumin [Mass/volume] in Serum or Plasma 4.2 g/dL 3.4-5.0 [facility] ([facility]) Proteinase 3 Ab [Units/volume] in Serum 7.6 g/dL 6.4-8.2 [facility] ([facility]) A/G Ratio 1.24 CALC 1.00-1.90 [facility]) Glomerular filtration rate/1.73 sq M pre dicted among non-blacks [Volume Rate/Area] in Serum or Plasma by Creatinine-based formula (MDRD) Laboratory test result [facility] Glomerular filtration rate/1.73 sq M pre dicted among blacks [Volume Rate/Area] in Serum or Plasma by Creatinine-based formula (MDRD) Laboratory [facility] <content>CHRONIC KIDNEY DISEASE STAGING PER NKF</content>
<content></content>
<content>STAGE I & II GFR >= 60 NORMAL TO MILDLY DECREASED</content>
<content>STAGE III GFR 30-59 MODERATELY DECREASED</content>
<content>STAGE IV GFR 15-29 SEVERELY DECREASED</content>
<content>STAGE V GFR <15 VERY LITTLE GFR LEFT</content>
<content>ESRD GFR <15 ON GAS AND OIL CHECKER</content>
<content></content> ID Date Data Source [id number] 01/27/2020 03:02:00 PM EDT [facility] ([facility]) Name Value Range Interpretation Code Description Data Radha rce(s) Supporting Document(s) Leukocytes [#/volume] in Blood by Automated count 4.5 x10*3/UL 4.1-10 .9 [facility] ([facility]) Erythrocytes [#/volume] in Blood by Automated count 4.62 x10*6/UL 4.2 0-6.30 [facility] ([facility]) Hemoglobin [Mass/volume] in Blood 14.0 g/dL 12.0-18.0 [facility] Hematocrit [Volume Fraction] of Blood by Automated count 39.9 % 3 7.0-51.0 [facility] MCHC 35.2 g/dL 31.0-38.0 [facility] MCH 30.4 pg 26.0-32.0 [facility] MCV 86.2 fL 80.0-97.0 [facility] MPV 8.3 FL 7.8-11.0 [facility] Erythrocyte distribution width [Ratio] by Automated count 12.5 % 11.6-13.7 [facility] ([facility]) Platelets [#/volume] in Blood by Automated count 246 x10*3/UL 140-440 [facility] ([facility]) Neut % 61.6 % 37.0-92.0 [facility]) Lymph % 32.2 % 10.0-58.5 [facility] Mid % 6.2 % 1.7-9.3 [facility]) Neut # 2.8 x10*3/UL 2.0-7.8 [facility] ([facility]) Mid # 0.3 x10*3/UL 0.1-0.6 [facility] ([facility]) Lymph # 1.4 x10*3/UL 0.6-4.1 [facility] ([facility]) ID Date Data Source [id number] 01/27/2020 03:02:00 PM EDT [facility] ([facility]) Name Value Range Interpretation Code Description Data Radha rce(s) Supporting Document(s) Hemoglobin A1c/Hemoglobin.total in Blood Laboratory test result [facility] ([facility]) Thyrotropin [Units/volume] in Serum or Plasma by Detec tion limit <= 0.05 mIU/L Laboratory test result [facility] ([facility]) Procedure Vital Signs ID Date Data Source [id number] Name Value Range Interpretation Code Description Data Source(s) Body mass index (BMI) [Ratio] 17.5 kg/m2 17.5 k g/m2 [facility] ([facility]) Oxygen saturation in Arterial blood by Pulse oximetry 93 % 93 % [facility] ([facility]) RM Air Body weight 99.00 [lb_av] 99.00 [lb_av] [facility] ([facility]) Body height 63 [in_i] 63 [in_i] [facility] ([facility]) 5'3" Heart rate 60 /min 60 /min [facility] ([facility]) Body mass index (BMI) [Ratio] 16.1 kg/m2 16.1 k g/m2 [facility] ([facility]) Oxygen saturation in Arterial blood by Pulse oximetry 99 % 99 % [facility] ([facility]) RM Air Body weight 91.00 [lb_av] 91.00 [lb_av] [facility] ([facility]) Body height 63 [in_i] 63 [in_i] [facility] ([facility]) 5'3" Heart rate 61 /min 61 /min [facility] ([facility]) Diastolic blood pressure 62 mm[Hg] 62 mm[Hg] [facility] ([facility]) Systolic blood pressure 92 mm[Hg] 92 mm[Hg] M [facility] ([facility])
== END 2020-05-18 09:01 | disposition home or self-care (01) ==
LOC: M ED 08:17
DX: S16.1XXA Strain of muscle, fascia and tendon at neck level, initial encounter (principal); Y92.9 Unspecified place or not applicable; Y93.9 Activity, unspecified; Y99.9 Unspecified external cause status; M51.36 Other intervertebral disc degeneration, lumbar region; G89.29 Other chronic pain; Z79.899 Other long term (current) drug therapy; Z88.0 Allergy status to penicillin

== ENCOUNTER → 2020-12-21 | Outpatient (REF) | payer OTHER ==
[~2020-12-21] MED LIST changes: +CYCL-707 PO; +IBUP200C33 PO; +NAPR-837 PO
== END ==
LOC: M LAB REF 16:39
PROVIDERS: ATTEND Physician Assistant
DX: R50.9 Fever, unspecified (principal)

== ENCOUNTER → 2022-02-01 | Outpatient (REF) | payer OTHER | LOC: M LAB REF 16:50 | PROVIDERS: ATTEND Nurse Practitioner Adult Health | DX: L63.9 Alopecia areata, unspecified (principal) ==

== ENCOUNTER → 2023-02-25 | Outpatient (CLI) | payer OTHER ==
[2023-02-25 11:26] LABS: BASO % 0.2 % (0.0-1.0); EOS % 0.4 % (0.0-3.0); HEMATOCRIT 41.7 % (36.0-47.0); HEMOGLOBIN 14.2 g/dl (12.0-15.5); LYMPH # 1.5 10^3/uL (1.5-5.0); LYMPH % 33.8 % (24.0-44.0); MEAN CORPUSCULAR HEMOGLOBIN 30.7 pg (27.0-33.0); MEAN CORPUSCULAR HGB CONC 34.1 g/dl (32.0-36.5); MEAN CORPUSCULAR VOLUME 90.3 fl (80.0-96.0); MONO # 0.3 10^3/uL (0.0-0.8); MONO % 7.2 % (2.0-8.0); NEUTROPHILS # 2.6 10^3/uL (1.5-8.5); NEUTROPHILS % 58.2 % (36.0-66.0); PLATELET COUNT, AUTOMATED 231 10^3/uL (150-450); RED BLOOD COUNT 4.62 10^6/uL (4.00-5.40); WHITE BLOOD COUNT 4.5 10^3/uL (4.0-10.0)
[2023-02-25 11:48] LABS: IRON (FE) 98 UG/DL (50-170); PERCENT SATURATION 32.5 % (13.2-45.0); TOTAL IRON BINDING CAPACITY 302 UG/DL (250-425)
[2023-02-25 11:49] LABS: ALBUMIN 4.3 G/DL (3.2-5.2); ALKALINE PHOSPHATASE 48 U/L (46-116); ALT/SGPT 29 U/L (7.0-40); AST/SGOT 48 U/L (<34); BILIRUBIN,TOTAL 0.8 MG/DL (0.3-1.2); BLOOD UREA NITROGEN 20 MG/DL (9-23); CALCIUM LEVEL 9.4 MG/DL (8.5-10.1); CARBON DIOXIDE LEVEL 28 MMOL/L (20-31); CHLORIDE LEVEL 104 MMOL/L (98-107); CREATININE FOR GFR 0.67 MG/DL (0.55-1.30); GLOMERULAR FILTRATION RATE > 60.0 (>60); GLUCOSE, FASTING 89 MG/DL (60-100); POTASSIUM SERUM 3.8 MMOL/L (3.5-5.1); SODIUM LEVEL 139 MMOL/L (136-145); THYROID STIMULATING HORMONE 1.773 uIU/ML (0.55-4.78); TOTAL PROTEIN 7.1 G/DL (5.7-8.2)
[2023-02-25 11:50] LABS: FREE T4 1.25 NG/DL (0.89-1.76); THYROID PEROXIDASE ANTIBODY < 28.0 U/ML (<60.0)
[2023-02-25 11:51] LABS: FERRITIN 79.7 NG/ML (7.3-270.7)
== END ==
LOC: M LAB 09:44
PROVIDERS: ATTEND Physician Assistant
DX: L65.9 Nonscarring hair loss, unspecified (principal)

== ENCOUNTER → 2024-07-20 | Outpatient (REF) | payer OTHER ==
[~2024-07-20] MED LIST changes: -BIOT50004 PO; +BIOT5CAP8 PO
== END ==
LOC: M LAB REF 11:55
PROVIDERS: ATTEND Physician Assistant Medical
DX: J02.9 Acute pharyngitis, unspecified (principal)

== ENCOUNTER → 2024-10-15 | Outpatient (REF) | payer OTHER | LOC: M LAB REF 12:07 | PROVIDERS: ATTEND Physician Assistant | DX: J02.9 Acute pharyngitis, unspecified (principal) ==